=== PATIENT | female | born 1975 | race Caucasian/White ===

== ENCOUNTER 2016-07-02 23:27 | Observation (INO) | payer BC ==
--- NOTE | ~2016-07-02 | HP ---
History And Physical [facility] [address] [place]. [address] NAME: MARNI LOCKE : 71 STATUS : ADM Nati PAT#: [id number] AGE: 41 ADM/REG DATE : 07/03/16 MR#: [id number] REPORT SERV DATE: 07/03/16 DICTATED BY: MIKEY MERCEDES DATE: 07/03/16 REPORT STATUS : Draft TRANSCRIBED BY: MODKrys DATE: 07/03/16 DATE OF ADMISSION: 07/03/2016 CHIEF COMPLAINT: Chest pain. HISTORY OF PRESENT ILLNESS: A pleasant 41-year-old white female with no known history of CAD, but with possible factor V Leiden, undergoing current workup with the PCP, and mother has factor V Leiden. The patient reports two days of episodic chest pain that at times radiates to her left arm. She describes it as a "dull pressure." She denies any shortness of breath, nausea, diaphoresis, dizziness, or belching, but states that she at times does not have an appetite. The chest pain at its most intense was rated a 7/10. At the time of interview in the CPOU, she rates it a 1/10. One episode lasted approximately two hours in duration. She did take two 81 aspirins prior to coming to the hospital and her symptoms were relieved with one sublingual nitroglycerin in the emergency room. There seems to be no pattern, no clear exertional component. These episodes occur randomly. She denies any personal history of myocardial infarction, stroke, DVT, or pulmonary embolus. The patient denies any recent fever or chills, no palpitations, no syncopal episodes. Denies PND or orthopnea. PAST MEDICAL HISTORY: 1. Dyslipidemia. 2. Possible factor V Leiden. 3. Ongoing tobacco abuse. 4. Denies hypertension or diabetes. 5. Positive family history for early CAD, mother with factor V Leiden. PAST SURGICAL HISTORY: None. SOCIAL HISTORY: She is single. Does not have any children. 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 Does not have a structured exercise routine. Smokes one pack per day for 30 years. Rarely consumes alcohol. Denies illicits. FAMILY HISTORY: Mother with heart attack at 57 and bypass, remains alive at 63. Father's medical history is unknown. Two maternal uncles at in their 50s of heart attacks. REVIEW OF SYSTEMS: A 14-point review of systems was performed, significant for HPI. No other contributory diagnoses identified. ALLERGIES: ALLERGY TO FLEXERIL, HIVES; CHANTIX, HIVES. HOME MEDICATIONS: Aspirin 81 mg daily, Wellbutrin 150 mg daily, and Livalo 2 mg daily. PHYSICAL EXAMINATION: BLOOD PRESSURE: Bilateral blood pressures on arrival, right 124/80, left 120/77, this History And Physical [address] [address] NAME: MARNI LOCKE : 71 STATUS : ADM Nati PAT#: [id number] AGE: 41 ADM/REG DATE : 07/03/16 MR#: [id number] REPORT SERV DATE: 07/03/16 DICTATED BY: MIKEY MERCEDES DATE: 07/03/16 REPORT STATUS : Draft TRANSCRIBED BY: MODL DATE: 07/03/16 morning 100/55; PULSE: 77, RESPIRATORY RATE: 14, TEMPERATURE: 98.1, O2 saturation 96% on room air. HEIGHT: 5 feet 2 inches. WEIGHT: 158 pounds. GENERAL: Cooperative, in no apparent distress. HEENT: Pupils 2 mm, sclera nonicteric. Nares patent. Moist mucous membranes. No xanthelasma. NECK: Trachea midline, no thyromegaly. No JVD. No bruits. LYMPH: No cervical lymphadenopathy. No supraclavicular lymphadenopathy. RESPIRATORY: Unlabored respirations. Breath sounds clear bilaterally to posterior auscultation. No wheezes or rhonchi. CARDIOVASCULAR: Regular rate. No murmur, rub or gallop appreciated. EXTREMITIES: Without edema. Pulses 2+ bilaterally. ABDOMEN: Soft, nontender, nondistended, normal bowel sounds auscultated throughout. No organomegaly. SKIN: Warm, dry extremities. No pallor, or cyanosis. PSYCHIATRIC: Appropriate affect. Alert, oriented x3. LABORATORY DATA: Troponin less than 0.02 x2, third pending. Potassium 3.6, BUN 9, creatinine 0.81, glucose 89, and magnesium 2.3. WBC 9.7, hemoglobin 14.8, hematocrit 43.5, and platelet count 394,000. D-dimer 0.42. EKG, sinus rhythm. ASSESSMENT AND PLAN: 1. Chest pain. The patient has been observed in the CPOU overnight to rule out myocardial infarction with serial enzymes. Third pending. EKG; stable. The patient has been held n.p.o. We will proceed with exercise treadmill today, which may be converted to nuclear imaging if symptoms warrant. The patient will be discharged home if low risk, no ischemia to follow up with her PCP in one to two weeks. If anything suggestive of ischemia, Cardiology referral will be initiated. 2. Dyslipidemia. Continue Livalo. 3. Ongoing tobacco abuse. Counseled regarding cessation for cardiovascular health and well being. 4. Possible factor V Leiden. Currently under workup with the PCP. Mother is positive for factor V. RICA/MODL PATRICIA Gonzalez, MACHINE PACKAGE SEALER-BC / [id number] CC: PATRICIA Gonzalez, MACHINE PACKAGE SEALER-BC Greg Zendejas M.D.
[2016-07-03 01:28] LABS: BASOPHILS 0.3 %; BASOPHILS ABSOLUTE 0.03 10/3/uL (0.0-0.16); EOSINOPHILS 1.5 %; EOSINOPHILS ABSOLUTE 0.15 10/3/uL (0.0-0.53); ER CBC TAT 0 Hrs 05 Mins; HEMATOCRIT 43.5 % (36.0-48.0); HEMOGLOBIN 14.8 g/dL (12.0-16.0); IMMATURE GRANULOCYTES 0.1 %; IMMATURE GRANULOCYTES ABSOLUTE 0.01 10/3/uL (0.0-0.11); LYMPHOCYTES 27.6 %; LYMPHOCYTES ABSOLUTE 2.67 10/3/uL (0.67-4.30); MEAN PLATELET VOLUME 9.4 fL (9.2-13.0); MONOCYTES 5.6 %; MONOCYTES ABSOLUTE 0.54 10/3/uL (0.21-1.20); NEUTROPHILS 64.9 %; NEUTROPHILS ABSOLUTE 6.28 10/3/uL (2.02-8.40); PLATELET COUNT 394 10/3/uL (150-400); RBC DISTRIBUTION WIDTH 14.5 % (12.0-16.0); RED CELL COUNT 4.78 10/6/uL (4.0-5.6); WHITE BLOOD CELLS 9.7 10/3/uL (4.5-10.5)
[2016-07-03 01:29] LABS: MANUAL DIFF NO %
[2016-07-03 01:37] LABS: PARTIAL THROMBO TIME 30.7 SEC (22.5-37.2); PROTIME (NOT ORD) 12.8 SEC (12.0-14.5)
[2016-07-03 01:40] LABS: D-DIMER QUANTITATIVE 0.42 ug/mLFEU (< 0.50)
[2016-07-03 01:46] LABS: BUN (BLOOD UREA NITROGEN) 9 MG/DL (6-23); CALCIUM, SERUM 9.1 MG/DL (8.5-10.4); CHEST PAIN PROFILE TAT 0 Hrs 23 Mins; CHLORIDE, SERUM 107 MMOL/L (96-112); CREATININE 0.81 MG/DL (0.55-1.02); GFR AFRICAN AMERICAN 103 ML/MIN (>=60); GFR NON AFRICAN AMERICAN 89 ML/MIN (>=60); POTASSIUM, SERUM 3.6 MMOL/L (3.5-5.3); SODIUM, SERUM 143 MMOL/L (135-148); TROPONIN I <0.02 NG/ML (<0.05)
[2016-07-03 01:47] LABS: CO2 (CARBON DIOXIDE) 29 MMOL/L (24-34); GLUCOSE, SERUM 89 MG/DL (60-99)
[2016-07-03] MEDS ORDERED: ASAB PO (02:52)
[2016-07-03] MEDS ORDERED: LIVALO2 MG PO (11:25)
[2016-07-03] MEDS ORDERED: WELLXL150 PO (11:25)
== END 2016-07-03 12:21 | disposition home or self-care (01) ==
LOC: ER 23:27 → CDU1 07-03 02:42
PROVIDERS: Specialist
DX: R07.9 Chest pain, unspecified (principal); E78.5 Hyperlipidemia, unspecified; F17.210 Nicotine dependence, cigarettes, uncomplicated; Z83.2 Family history of diseases of the blood and blood-forming organs and certain disorders involving the immune mechanism; Z82.49 Family history of ischemic heart disease and other diseases of the circulatory system; Z88.8 Allergy status to other drugs, medicaments and biological substances; Z79.82 Long term (current) use of aspirin
CPT/HCPCS: 71010; 80048; 83735; 84484; 85025; 85379; 85610; 85730; 93005; 93017; 99285; A9270-GY; G0378